=== PATIENT | male | born 1990 | race Caucasian/White ===

== ENCOUNTER 2017-03-03 03:22 | Emergency (ER) | payer OTHER ==
[~2017-03-03] VITALS: Ht 167.6 cm; Wt 68.2 kg
[2017-03-03 03:26] VITALS: BP 132/85; PULSE 91; RESP 24; O2SAT 98
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
[2017-03-03] MEDS ORDERED: NAPR500T PO (04:38)
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
== END 2017-03-03 04:48 | disposition home or self-care (01) ==
LOC: SED 03:22
DX: S20.211A Contusion of right front wall of thorax, initial encounter (principal); Y04.0XXA Assault by unarmed brawl or fight, initial encounter; Y93.9 Activity, unspecified; Y92.9 Unspecified place or not applicable; Y99.8 Other external cause status